=== PATIENT | female | born 1930 | race Caucasian/White ===

== ENCOUNTER 2017-10-20 17:02 | Emergency (ER) | payer MEDICARE, OTHER ==
[~2017-10-20] VITALS: Ht 162.6 cm; Wt 78.2 kg
[~2017-10-20 17:02] MED LIST: ASPI-1265 PO; ATOR20TA PO; CLOP75TA35 PO; CYA500T PO; HYDR-569 PO; IMD30T PO; METO50TA7 PO; VENL-190 PO
[2017-10-20] MEDS ORDERED: HYDROcodone/acetaminophen 10/325mg tab PO ONE (19:50)
[2017-10-20 21:31] VITALS: BP 135/89
== END 2017-10-20 21:32 | disposition home or self-care (01) ==
LOC: ER 17:03
DX: M54.2 Cervicalgia (principal); I10 Essential (primary) hypertension; I25.10 Atherosclerotic heart disease of native coronary artery without angina pectoris; Z90.49 Acquired absence of other specified parts of digestive tract; Z90.710 Acquired absence of both cervix and uterus; Z88.5 Allergy status to narcotic agent; Z79.82 Long term (current) use of aspirin; Z79.899 Other long term (current) drug therapy
CPT/HCPCS: 70450; 72125; 93005; 99284